=== PATIENT | male | born 1980 | race Caucasian/White ===

== ENCOUNTER 2022-07-26 06:03 | Emergency (ER) | payer OTHER, BC ==
[2022-07-26] MEDS ORDERED: NAPROXEN500 MG PO (07:13)
[2022-07-26 07:27] VITALS: BP 113/72
== END 2022-07-26 07:27 | disposition home or self-care (01) | DRG 563 ==
LOC: ED 06:03
DX: S96.912A Strain of unspecified muscle and tendon at ankle and foot level, left foot, initial encounter (principal); X50.0XXA Overexertion from strenuous movement or load, initial encounter; Y93.89 Activity, other specified; Y99.0 Civilian activity done for income or pay

== ENCOUNTER 2022-10-16 03:04 | Emergency (ER) | payer OTHER ==
[~2022-10-16] VITALS: Ht 175.3 cm; Wt 106.0 kg
[~2022-10-16 03:04] MED LIST: NAPROXEN500 MG PO
[2022-10-16 03:09] VITALS: BP 107/76
[2022-10-16] MEDS ORDERED: VOLTAREN - GENE75 MG PO (03:26)
[2022-10-16] MEDS ORDERED: ORPHENADRINE C100 M1 PO (03:26)
[2022-10-16 03:29] VITALS: BP 107/76
== END 2022-10-16 03:40 | disposition home or self-care (01) | DRG 563 ==
LOC: ED 03:04
DX: S39.012A Strain of muscle, fascia and tendon of lower back, initial encounter (principal); F17.220 Nicotine dependence, chewing tobacco, uncomplicated; X50.0XXA Overexertion from strenuous movement or load, initial encounter; Y93.89 Activity, other specified; Y92.149 Unspecified place in prison as the place of occurrence of the external cause; Y99.0 Civilian activity done for income or pay